=== PATIENT | male | born 1980 | race Caucasian/White ===

== ENCOUNTER → 2017-01-19 | Outpatient (CLI) | payer OTHER | LOC: BMCIMAGING 10:49 | PROVIDERS: ATTEND Family Medicine | DX: S69.92XA Unspecified injury of left wrist, hand and finger(s), initial encounter (principal); V18.0XXA Pedal cycle driver injured in noncollision transport accident in nontraffic accident, initial encounter; Y93.55 Activity, bike riding ==

== ENCOUNTER 2018-04-03 12:32 | Observation (INO) | payer OTHER ==
[2018-04-03] MEDS ORDERED: METOCLOPRAMIDE 10 MG TAB PO ONE (12:54)
--- NOTE | 2018-04-03 13:00 | EDPHY ---
H & P Stated Complaint: hx migraines/[place]/r sided facial tingling /numbness started at 10 am Time Seen by Provider: 04/03/18 12:44 HPI/ROS: CHIEF COMPLAINT: Headache, right facial numbness HISTORY OF PRESENT ILLNESS: 37 year old male presents with headache and right facial numbness. History of frequent migraine headaches. Onset right-sided frontal headache at 10:00 a.m.. Associated with numbness of the rt cheek, tongue and the left hand. Usually takes ibuprofen and Reglan for headaches. Ran out of Reglan recently. He has had prior neurologic symptoms associated with migraine headaches. No prior MRI or neurologic evaluation. REVIEW OF SYSTEMS: complete 10 point ROS reviewed and is negative except for the noted elements in the HPI - Personal History Current Tetanus Diphtheria and Acellular Pertussis (TDAP): Unsure - Medical/Surgical History Hx Asthma: No Hx Chronic Respiratory Disease: No Hx Diabetes: No Hx Cardiac Disease: No Hx Renal Disease: No Hx Cirrhosis: No Hx Alcoholism: No Hx HIV/AIDS: No Hx Splenectomy or Spleen Trauma: No Other PMH: migraines - Social History Smoking Status: Never smoked Alcohol Use: Sober Drug Use: None Additional Social History: no PCP - Physical Exam Exam: General Appearance: Alert, pleasant Eyes: Pupils equal and round, no conjunctival pallor ENT, Mouth: Mucous membranes moist Neck: Normal inspection Respiratory: Lungs are clear to auscultation Cardiovascular: Regular rate and rhythm Gastrointestinal: Abdomen is soft and nontender Neurological: Alert, oriented x3, cranial nerves II through XII intact, motor 5 /5, subjective decreased sensation to light touch rt cheek and left hand, normal gait Skin: Warm and dry Extremities: Normal inspection Psychiatric: Mood and affect normal Constitutional: Initial Vital Signs Temperature (C) 36.5 C 04/03/18 12:38 Heart Rate 58 L 04/03/18 12:38 Respiratory Rate 18 04/03/18 12:38 Blood Pressure 128/69 H 04/03/18 12:38 O2 Sat (%) 96 04/03/18 12:38 O2 Delivery Mode Room Air Allergies/Adverse Reactions: No Known Allergies Allergy (Verified 04/03/18 14:29) Home Medications: Medication Instructions Recorded Acetaminophen/ASA/Caffeine 1 each PO DAILY PRN 04/03/18 [Excedrin Tablet (*)] Albuterol [Proventil Inhaler HFA 1 - 2 puffs IH Q4H PRN 04/03/18 (*)] Ibuprofen [Motrin (*)] 200 mg PO DAILY PRN 04/03/18 Metoclopramide [Reglan 5 mg (*)] 5 mg PO Q8HRS PRN 04/03/18 Medical Decision Making - Diagnostics Imaging Results: Imaging Impressions Brain MRI 04/03/18 12:55 Impression: 1. Suspect acute/subacute lacunar infarction involving the right thalamus. 2. No white matter disease, mass, or hemorrhage. Findings discussed with Emergency Department physician, Gabriella Olvera on 2017, 14:10. Head CTA 04/03/18 14:10 Impression: 1. No acute vascular findings. 2. Additional findings, as above. Stenoses are calculated using [place] Symptomatic Carotid Endarterectomy Trial (NASCET) criteria. Findings communicated via secure Voalte text to Betty Dill M.D., on April 03, 2018 at 1534 hours. E:amm Neck CTA 04/03/18 14:10 Impression: 1. No acute vascular findings. 2. Additional findings, as above. Stenoses are calculated using [place] Symptomatic Carotid Endarterectomy Trial (NASCET) criteria. Findings communicated via secure Voalte text to Betty Dill M.D., on April 03, 2018 at 1534 hours. E:amm Imaging: Discussed imaging studies w/ biopsychologist Radiologist, I viewed and interpreted images myself ED Course/Re-evaluation: This patient presents with typical migraine headache, with new neurologic symptoms. MRI of the brain ordered. MRI results discussed with Dr. Ricki Smith. The patient has no prior MRI for comparison. MRI reveals decreased diffusion medial aspect of right thalamus , 4 x 10 mm, concerning for CVA. Results discussed with the patient. He is currently feeling better. Continues to have a mild headache, but neurologic symptoms have resolved. No right facial or left hand numbness. Aspirin 325 mg orally given. Likely migraine LUNSFORD with cerebral infarct. Primary CVA/TIA less likely. No indication for TPA. Neurology consulted. Discussed with Dr. Hewitt, requests CTA of head and neck and admission for further evaluation. Will see the patient in the hospital. The hospitalist service was consulted for admission. Differential Diagnosis: Altered mental status including but not limited to hypoglycemia, infectious process, electrolyte abnormality, head injury, CVA, and intoxicants. - Data Points Laboratory Results: Laboratory Results 04/03/18 13:05 04/03/18 13:05 04/03/18 04/03/18 13:05 13:05 WBC 7.46 10^3/uL 10^3/uL (3.80-9.50) RBC 5.39 10^6/uL 10^6/uL (4.40-6.38) Hgb 16.2 g/dL g/dL (13.7-17.5) Hct 46.4 % % (40.0-51.0) MCV 86.1 fL fL (81.5-99.8) MCH 30.1 pg pg (27.9-34.1) MCHC 34.9 g/dL g/dL (32.4-36.7) RDW 12.0 % % (11.5-15.2) Plt Count 272 10^3/uL 10^3/uL (150-400) MPV 9.5 fL fL (8.7-11.7) Neut % (Auto) 56.7 % % (39.3-74.2) Lymph % (Auto) 33.6 % % (15.0-45.0) [place] % (Auto) 6.0 % % (4.5-13.0) Eos % (Auto) 3.1 % % (0.6-7.6) Baso % (Auto) 0.3 % % (0.3-1.7) Nucleat RBC Rel Count 0.0 % % (0.0-0.2) Absolute Neuts (auto) 4.23 10^3/uL 10^3/uL (1.70-6.50) Absolute Lymphs (auto) 2.51 10^3/uL 10^3/uL (1.00-3.00) Absolute Monos (auto) 0.45 10^3/uL 10^3/uL (0.30-0.80) Absolute Eos (auto) 0.23 10^3/uL 10^3/uL (0.03-0.40) Absolute Basos (auto) 0.02 10^3/uL 10^3/uL (0.02-0.10) Absolute Nucleated RBC 0.00 10^3/uL 10^3/uL (0-0.01) Immature Gran % 0.3 % % (0.0-1.1) Immature Gran # 0.02 10^3/uL 10^3/uL (0.00-0.10) Sodium 139 mEq/L mEq/L (135-145) Potassium 4.1 mEq/L mEq/L (3.3-5.0) Chloride 103 mEq/L mEq/L (97-110) Carbon Dioxide 26 mEq/l mEq/l (22-31) Anion Gap 10 mEq/L mEq/L (6-14) BUN 11 mg/dL mg/dL (7-23) Creatinine 0.7 mg/dL mg/dL (0.7-1.3) Estimated GFR > 60 Glucose 103 mg/dL H mg/dL (70-100) Calcium 9.3 mg/dL mg/dL (8.5-10.4) Medications Given: Discontinued Medications Aspirin (Aspirin) 325 mg PO EDNOW ONE Stop: 04/03/18 14:06 Last Admin: 04/03/18 14:11 Dose: 325 mg Metoclopramide HCl (Reglan) 5 mg PO EDNOW ONE Stop: 04/03/18 12:55 Last Admin: 04/03/18 13:09 Dose: 5 mg Departure - Departure Disposition: [facility] Acute Clinical Impression: Paresthesias Migraine headache Qualifiers: Migraine type: other Status migrainosus presence: without status migrainosus Intractability: not intractable Qualified Code(s): G43.809 - Other migraine, not intractable, without status migrainosus Condition: Fair
[2018-04-03] MEDS ORDERED: ASPIRIN 325 MG TAB PO ONE (14:05)
[2018-04-03 14:12] LABS: PLATELET COUNT 272 10^3/uL (150-400)
[2018-04-03] MEDS ORDERED: IOPAMIDOL (ISOVUE 370) 100 ML BTL IV ONE (14:38)
--- NOTE | 2018-04-03 15:14 | CPEKG ---
Test Reason : OPEN Blood Pressure : / mmHG Vent. Rate : 048 BPM Atrial Rate : 049 BPM P-R Int : 163 ms QRS Dur : 096 ms QT Int : 458 ms P-R-T Axes : 067 068 054 degrees QTc Int : 410 ms Sinus bradycardia Probable left atrial enlargement ST elev, probable normal early repol pattern Confirmed by Gabriella Olvera ([id number]) on 04/03/2018 3:14:32 PM Referred By: Confirmed By:Gabriella Olvera
[2018-04-03] MEDS ORDERED: LORazepam 0.5 MG TAB PO PRN (15:22)
[2018-04-03] MEDS ORDERED: oxyCODONE IR 5 MG TAB PO PRN (15:22)
[2018-04-03] MEDS ORDERED: ONDANSETRON 4 MG/2 ML VIAL IVP PRN (15:22)
[2018-04-03] MEDS ORDERED: HYDROCODONE/APAP 5/325 TAB PO PRN (15:22)
[2018-04-03] MEDS ORDERED: ACETAMINOPHEN 325 MG TAB PO PRN (15:22)
[2018-04-03] MEDS ORDERED: PROMETHAZINE HCL 25 MG/ML INJ IVP PRN (15:22)
[2018-04-03] MEDS ORDERED: ONDANSETRON DISINTEGRATING 4 MG TAB PO PRN (15:22)
--- NOTE | 2018-04-03 16:21 | ASMTCMCOM ---
CM Note CM Note Notes: Pt has been admitted with headache and R facial numbness. He has a hx of migraines. Neurology is consulting. CM will follow for any d/c needs. Date Signed: 04/03/2018 04:20 PM Electronically Signed By:DAVID Bolton
--- NOTE | 2018-04-03 17:02 | ECHO ---
[email or web address] [address] Main: [phone] Fax: [email or web address] Echocardiogram Name: SUKH AMEZQUITA MR#: [id number] Study Date: 04/03/2018 Study Time: 03:49 PM Date of : 1980 Age: 37 year(s) Height: ( ) Weight: ( ) BSA: Gender: Male Examination: Echo with Agitated Saline Indication: ischemic stroke Image Quality: Adequate Contrast: I.V. dose of agitated saline Requested by: Betty Dill BP: / Heart Rate: Rhythm: Indication: ischemic stroke Procedure Staff Hepatology Physician: Althea De Leon [facility] Reading Physician: Obinna Coley MD Requesting Provider: Conclusions: Normal size left ventricle. Normal global systolic LV function. EF is 53 %. The mitral valve is normal in appearance and function. Trivial to mild mitral regurgitation. The aortic valve is tri-leaflet and functions normally. There appears to be a single bubble that crosses the atrail septum on bubble study. Can not exclude abberrant cord. Consider MAYELIN if clinically indicated to further evaluate the patients condition. No old studies for comparison. Measurements: Chambers Valvular Assessment AV/MV Valvular Assessment TV/PV Normal Normal Normal Name Value Range Name Value Range Name Value Range Ao Jeanette (MM): 3.1 cm (2.2 cm-3.7 AV Vmax: 1.14 m/s (1 m/s-1.7 PV Vmax: 0.98 m/s (0.6 m/s-0.9 cm) m/s) m/s) IVSd (2D): 0.7 cm (0.6 cm-1.1 AV maxP mmHg ( - ) PV PGmax: 4 mmHg ( - ) cm) LVOT Vmax: 0.78 m/s (0.7 m/s-1.1 LVDd (2D): 5.4 cm (4.2 cm-5.9 m/s) cm) CRISTIAN (Vmax): 2.8 cm2 ( - ) LVDs (2D): 3.1 cm (2.1 cm-4 MV E Vmax: 0.46 m/s ( - ) cm) MV A Vmax: 0.43 m/s ( - ) LVPWd (2D): 0.9 cm (0.6 cm-1 MV E/A: 1.07 ( - ) cm) LVOTd 2.3 cm 2.3 cm mm LVEF (MOD4): 53 % (>=55 %) RVDd(2D): 3.3 cm (1.9 cm-3.8 cmmm) Continued Measurements: Patient: SUKH AMEZQUITA Study Date: 04/03/2018 Page 1 of 2 03:49 PM Chambers Valvular Assessment AV/MV Name Value Name Value LADs: 3.1 cm MV DecTime: 176 m/s LADs Lon.5 cm MV E' Septal: 0.09 m/s LA Area: 14.6 cm2 MV E/E' Septal: 4.90 RA Area: 14.0 cm2 MV E/E' Lateral: 3.10 Additional Vessels Name Value Ao Ascendin.0 cm Findings: Left Ventricle: Normal size left ventricle. No LV hypertrophy. Normal global systolic LV function. EF is 53 %. No regional wall motion abnormality. Normal diastolic LV function. Right Ventricle: Normal size right ventricle. Normal RV function. Left Atrium: The left atrium is normal in size. LA index 30.6ml/m2. Right Atrium: The right atrium is normal in size. Mitral Valve: The mitral valve is normal in appearance and function. Trivial to mild mitral regurgitation. No mitral stenosis is present. Aortic Valve: The aortic valve is tri-leaflet and functions normally. There is no aortic valve regurgitation. No aortic valve stenosis is present. Tricuspid Valve: The tricuspid valve is normal in appearance and function. Trivial tricuspid valve regurgitation. Pulmonary artery pressure is not obtained due to inadequate TR jet. Pulmonic Valve: The pulmonic valve is normal in appearance and function. Trivial to mild pulmonic valve regurgitation. Aorta: The aorta is normal. Normal size aortic root measuring 3.1 cm. Normal size ascending aorta measuring 3.0 cm. IVC: Normal size and course of the IVC. Pericardium: No pericardial effusion. (No Signature Object) Patient: SUKH AMEZQUITA Study Date: 04/03/2018 Page 2 of 2 03:49 PM [id number]
--- NOTE | 2018-04-03 17:55 | GCON ---
NEUROLOGY CONSULT REFERRING PHYSICIAN: Gabriella Olvera MD CHIEF COMPLAINT: Abnormal MRI brain. HISTORY OF PRESENT ILLNESS: The patient is a very pleasant 37-year-old gentleman with a 7+ year of migraine with aura. He typically gets facial paresthesias and numbness or paresthesias in his upper extremities. He has been having perhaps increased stress at work and with this some fatigue and hypersomnolence. He woke up feeling fatigued today. He also felt some "brain fog" in terms of troubles thinking, doing simple tasks and procedures. He went to work and started developing his typical migrainous aura of scotoma, which then transformed into a right-sided retro-orbital throbbing headache. This is typical for him. However, co-worker thought there could have been facial droop or that he was not thinking clearly and thought he should be seen in the ED. He came to the ED and had a brain MRI which showed a faint area of increased diffusion-weighted abnormality in the right thalamus. The patient did have a few seconds of left hand paresthesias, but he gets these commonly with migraines. There was no specific left-sided hemianesthesia syndrome with this presentation today. Because of the abnormality, he had a CTA of the head and neck, which was negative. Echocardiogram was done and showed no intracardiac thrombus. He is now improving. REVIEW OF SYSTEMS: A 10-point review of systems was done and only pertinent to the HPI. For past medical history, social history, family history, home medications, allergies, see the admitting hospitalist's History and Physical. PHYSICAL EXAM: VITAL SIGNS: Blood pressure is 116/65, heart rate 50s to 60s, temperature 36.5, O2 sats 97%. NEUROLOGIC: In no acute distress. Very pleasant. Higher mental function: Awake and alert. No aphasia. Cranial nerve exam normal 2-7 and 12. Motor: Normal strength, tone, and reflexes throughout. Sensory: Normal to light touch throughout. No extinction. Coordination is normal in the upper extremities. IMPRESSION: 1. Migraine with aura. 2. Abnormal MRI. PLAN: We had a long discussion regarding the differential diagnosis today. Specifically, we may be seeing imaging abnormalities in the setting of an acute migraine. We also discussed the possibility of a migrainous cerebral infarction. Finally, we discussed the possibly of an unrelated ischemic infarct during a migraine, which seems unlikely. We will complete the stroke workup with a 30-day outpatient event monitor. Angiography and echocardiogram were unremarkable. He should be discharged on an aspirin/statin daily. I would also recommend we repeat an MRI brain tomorrow around 11 am to see if the signal has changed. This would help understand and differentiate ischemic stroke versus migrainous signal changes. I will then see him as an outpatient in 4-6 weeks to continue ongoing care for all the above including migraine treatment. He should be on an aspirin indefinitely as noted above. Finally, we will also check a thrombophilia panel and follow up as an outpatient. We will continue to follow this very pleasant patient. Thank you for the consultation. Forty-five total minutes floor time reviewing records, imaging, coordination of care, and direct counseling with the patient. /[id number]/MODL MTDRobby
--- NOTE | 2018-04-03 21:45 | PDGENHP ---
History and Physical - Chief Complaint headache, right facial numbness/ left hand tingling - History of Present Illness 37 yo M with PMH of migraine headache presenting with c/o headache along with right facial numbness and reported right facial droop as well as left hand tingling. Patient notes that he has had migraines for many years, but they do seem to be intensifying recently, where he would previously have them only every few months, he is having them lately every month. He often will get left hand tingling with his migraines, but today he also had right facial numbness and one of his co workers looked at him and said he looked as if he was having a stroke as one side of his face was drooping. For that reason he came to the ER. At the time of my evaluation all of the symptoms other than his headache had resolved. He also notes that for what seems like years he has been having issues with significant fatigue. He notes he sleeps 12 hours every night and is still tired in the daytime, he will often take several hour naps after sleeping 12 hours. Today he has had 3 naps and is still tired. He has not had other issues including palpitations, chest pain, fever or chills. History Information - Allergies/Home Medication List Allergies/Adverse Reactions: No Known Allergies Allergy (Verified 04/03/18 14:29) Home Medications: Acetaminophen/ASA/Caffeine [Excedrin Tablet (*)] 1 each PO DAILY PRN 04/03/18 [ Last Taken 04/03/18] Albuterol [Proventil Inhaler HFA (*)] 1 - 2 puffs IH Q4H PRN 04/03/18 [Last Taken Unknown] Ibuprofen [Motrin (*)] 200 mg PO DAILY PRN 04/03/18 [Last Taken 04/03/18] Metoclopramide [Reglan 5 mg (*)] 5 mg PO Q8HRS PRN 04/03/18 [Last Taken 04/03/18 ] I have personally reviewed and updated: family history, medical history, social history, surgical history - Past Medical History asthma (exercise induced), migraines - Surgical History Reports: no pertinent surgical hx - Family History Additional family history: Father with Gadiel's vasculitis and prostate cancer. Mother and sister in good health - Social History Smoking Status: Never smoked Alcohol Use: Sober Drug Use: None Review of Systems Review of Systems: ROS: 10pt was reviewed & negative except for what was stated in HPI & below Physical Exam Physical Exam: Temp Pulse Resp BP Pulse Ox 37.1 C 55 L 14 119/70 95 04/03/18 20:12 04/03/18 20:12 04/03/18 20:12 04/03/18 20:12 04/03/18 20:12 Constitutional: no apparent distress, appears nourished Eyes: PERRL, anicteric sclera Ears, Nose, Mouth, Throat: moist mucous membranes, hearing normal, ears appear normal Cardiovascular: regular rate and rhythym, no murmur, rub, or gallop, No edema Respiratory: no respiratory distress, no rales or rhonchi, clear to auscultation Gastrointestinal: normoactive bowel sounds, soft, non-tender abdomen Genitourinary: no bladder tenderness Skin: warm, normal color Musculoskeletal: full muscle strength, no muscle tenderness, normal joint ROM Neurologic: AAOx3, sensation intact bilaterally, CN II-XII Intact, No weakness, No numbness Psychiatric: interacting appropriately, not anxious, not encephalopathic Lab Data & Imaging Review 04/03/18 13:05 04/03/18 13:05 WBC 7.46 10^3/uL (3.80-9.50) 04/03/18 13:05 RBC 5.39 10^6/uL (4.40-6.38) 04/03/18 13:05 Hgb 16.2 g/dL (13.7-17.5) 04/03/18 13:05 Hct 46.4 % (40.0-51.0) 04/03/18 13:05 MCV 86.1 fL (81.5-99.8) 04/03/18 13:05 MCH 30.1 pg (27.9-34.1) 04/03/18 13:05 MCHC 34.9 g/dL (32.4-36.7) 04/03/18 13:05 RDW 12.0 % (11.5-15.2) 04/03/18 13:05 Plt Count 272 10^3/uL (150-400) 04/03/18 13:05 MPV 9.5 fL (8.7-11.7) 04/03/18 13:05 Neut % (Auto) 56.7 % (39.3-74.2) 04/03/18 13:05 Lymph % (Auto) 33.6 % (15.0-45.0) 04/03/18 13:05 [place] % (Auto) 6.0 % (4.5-13.0) 04/03/18 13:05 Eos % (Auto) 3.1 % (0.6-7.6) 04/03/18 13:05 Baso % (Auto) 0.3 % (0.3-1.7) 04/03/18 13:05 Nucleat RBC Rel Count 0.0 % (0.0-0.2) 04/03/18 13:05 Absolute Neuts (auto) 4.23 10^3/uL (1.70-6.50) 04/03/18 13:05 Absolute Lymphs (auto) 2.51 10^3/uL (1.00-3.00) 04/03/18 13:05 Absolute Monos (auto) 0.45 10^3/uL (0.30-0.80) 04/03/18 13:05 Absolute Eos (auto) 0.23 10^3/uL (0.03-0.40) 04/03/18 13:05 Absolute Basos (auto) 0.02 10^3/uL (0.02-0.10) 04/03/18 13:05 Absolute Nucleated RBC 0.00 10^3/uL (0-0.01) 04/03/18 13:05 Immature Gran % 0.3 % (0.0-1.1) 04/03/18 13:05 Immature Gran # 0.02 10^3/uL (0.00-0.10) 04/03/18 13:05 Sodium 139 mEq/L (135-145) 04/03/18 13:05 Potassium 4.1 mEq/L (3.3-5.0) 04/03/18 13:05 Chloride 103 mEq/L (97-110) 04/03/18 13:05 Carbon Dioxide 26 mEq/l (22-31) 04/03/18 13:05 Anion Gap 10 mEq/L (6-14) 04/03/18 13:05 BUN 11 mg/dL (7-23) 04/03/18 13:05 Creatinine 0.7 mg/dL (0.7-1.3) 04/03/18 13:05 Estimated GFR > 60 04/03/18 13:05 Glucose 103 mg/dL (70-100) H 04/03/18 13:05 Calcium 9.3 mg/dL (8.5-10.4) 04/03/18 13:05 Visualized and Interpreted imaging results: Yes Interpretation: Brain MRI: acute/subacute lacunar infarct right thalamus. head/ neck CTA: negative Visualized and Interpreted EKG results: Yes EKG Interpretation: Positive for: normal sinsus rhythm (kati) Assessment & Plan Assessment: Migraine headache (Acute) Paresthesias (Acute) 37 yo M with hx of migraine presenting with LUNSFORD/right facial and left hand numbness and MRI concerning for CVA # paresthesias: in setting of migraine LUNSFORD and brain MRI concerning for acute/ subacute right thalamic infarct. Sxs have resolved completely, as next # ? CVA: Discussed with neurology, head and neck CTA negative, echo wnl, thrombophilia w/u pending. Given MRI being performed in setting of acute migraine, possible that affected the results (reports of abnormal MRI occurring during bout of migraine) Plan is for repeat MRI in am. continue asa indefinitely. Patient will f/u with neuro after discharge and likely can dc following MRI tomorrow # migraine: recurrent with aura and as above, neurology following and as above will f/u with them after dc for ongoing management # fatigue: unclear how or if related to above, will check tsh, no real other localizing sxs at this time # observation status Patient new to my care. Old records reviewed and summarized as above. Care plan reviewed with ER doctor and neurology as above.
[2018-04-04 06:01] LABS: PLATELET COUNT 241 10^3/uL (150-400)
[2018-04-04] MEDS ORDERED: ASPIRIN 81 MG CHEWABLE TAB PO SCH (09:00)
[2018-04-04] MEDS ORDERED: ENOXAPARIN 40 MG/0.4 ML SYR SC SCH (09:00)
--- NOTE | 2018-04-04 09:32 | NEUROPROG ---
Assessment: 1. Migraine with aura 2. Abnormal brain MRI 35 total minutes floor time; review of interim history, labs, counseling the patient and coordination of care The migraine as resolved. Echocardiogram may show a single bubble crossing the septum. No atrial fibrillation that I have been made aware of overnight on telemetry. Recommendation: 1. Repeat brain MRI around 11:00 a.m. To see if this signal is change. I will call the patient from my clinic to discuss findings. 2. Plan on discharge home later today on aspirin 81 mg daily plus statin. 3. Outpatient Cardiology consultation for 30 day event monitor and consideration for MAYELIN based on review of the surface echo. 4. Thrombophilia panel is pending, I will follow-up as an outpatient 5. Follow-up with me in 4 weeks to review all of the above and ongoing migraine management. Subjective: Migraine resolved Objective: Vital Signs Temp Pulse Resp BP Pulse Ox 36.5 C 51 L 10 L 120/74 97 04/04/18 08:00 04/04/18 08:00 04/04/18 08:00 04/04/18 08:00 04/04/18 08:00 Laboratory Results 04/04/18 05:25 04/04/18 05:25 04/03/18 04/04/18 04/05/18 05:59 05:59 05:59 Intake Total 1000 Balance 1000 Awake and alert Allergies/Adverse Reactions: No Known Allergies Allergy (Verified 04/03/18 14:29)
[2018-04-04 14:39] VITALS: BP 120/71
--- NOTE | 2018-04-04 15:08 | NEUROPROG ---
Assessment: Addendum note: 1. Migrainous infarction I viewed the the repeat brain MRI images and the diffusion-weighted abnormalities are more intense now compared to yesterday study. This would confirm the diagnosis of migrainous infarction. I reviewed the literature with the patient including that this is a rare complication of migraine with aura, more commonly in women than men, and more commonly in the posterior circulation verses the anterior circulation. I spoke with the patient on the phone today. My recommendations are the same as below: Recommendation: 1. Plan on discharge home later today on aspirin 81 mg daily plus statin. 2. Outpatient Cardiology consultation for 30 day event monitor and consideration for MAYELIN based on review of the surface echo. 3. Thrombophilia panel is pending, I will follow-up as an outpatient 4. Follow-up with me in 4 weeks to review all of the above and ongoing migraine management. Objective: Vital Signs Temp Pulse Resp BP Pulse Ox 37.0 C 16 L 17 120/71 95 04/04/18 12:00 04/04/18 12:00 04/04/18 12:00 04/04/18 12:00 04/04/18 12:00 Laboratory Results 04/04/18 05:25 04/04/18 05:25 04/03/18 04/04/18 04/05/18 05:59 05:59 05:59 Intake Total 1000 Balance 1000 Allergies/Adverse Reactions: No Known Allergies Allergy (Verified 04/03/18 14:29)
--- NOTE | 2018-04-04 15:21 | PDDCSUM ---
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 Migraine headaches 3. Chronic fatigue Brief Hospital Course: 37yo M with history of migraine headaches presented with headache, right facial and left hand paresthesias, and some word finding difficulty found to have acute /subacute infarct in right thalamic area on brain MRI. A repeat MRI on day of discharged showed more intense diffusion-weighted images, which, per neurology, confirmed a diagnosis of migrainous infarction (a rare complication of migraine with aura). Typical stroke work up was performed and grossly unremarkable except for a potential small PFO ("one bubble" was seen in left atrium on TTE). He was discharged on an aspirin and statin (LDL 93). He is being set up with a 30 day cardiac event monitor and will follow up with cardiology to determine if MAYELIN is needed. Thrombophilia panel is pending at discharge. Overall his neurologic deficits had resolved at time of discharge. 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 Medications: Please refer to EMR for complete list. Changes this admission include addition of aspirin 81mg daily and atorvastatin 20mg daily. Follow Up Plan: 1. A 30 day cardiac event monitor is being mailed to the patient in roughly 5 days. 2. He has an appointment to follow up with Dr Carlos Campos of cardiology on at 9am to review ekg monitor results and discuss potential need for MAYELIN given possibility of PFO 3. Follow up in neurology clinic in 4 weeks. 4. Thrombophilia panel pending at discharge 5. Needs to establish with PCP. Needs chronic fatigue work up, consider sleep study. Physical Exam: Vitals and telemetry reviewed, no concerning findings. Alert and oriented without focal deficits, full strength, no sensory deficits, reflexes normal. RRR without m/r/g, lungs clear, abd soft, no rashes, no edema.
--- NOTE | 2018-04-04 15:31 | ASMTLACE ---
LAURAE Length of stay for Answers: 2 days current admission Acuity / Level of Answers: No Care: Did the patient have an inpatient admission? Comorbidities - select Answers: Other Notes: Hx of migranes all that apply # of Emergency department Answers: 1-2 visits in the last 6 months Score: 4 Date Signed: 04/04/2018 03:31 PM Electronically Signed By:DAVID Yang
--- NOTE | 2018-04-04 15:32 | ASMTCMCOM ---
CM Note CM Note Notes: Pt medically stable for d/c, no CM d/c needs identified. 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 Pt to follow up with neurology outpatient. Date Signed: 04/04/2018 03:32 PM Electronically Signed By:DAVID Yang
== END 2018-04-04 16:41 | disposition home or self-care (01) ==
LOC: F3N 15:32
PROVIDERS: ADMIT Internal Medicine; ATTEND Internal Medicine
DX: G00-G99 Diseases of the nervous system (principal); I63.81 Other cerebral infarction due to occlusion or stenosis of small artery; R53.83 Other fatigue; Z80.42 Family history of malignant neoplasm of prostate
CPT/HCPCS: 70496; 70498; 70551; 92523; 93005; 93306; 97161; 97165; 99285; G0378; 81479-90; 83891-91; 83896-91; 85300-90; 85670-90; J1650; Q9967

== ENCOUNTER 2018-04-19 10:03 | Day surgery (SDC) | payer OTHER ==
[2018-04-19] MEDS ORDERED: MIDAZOLAM 2 MG/2 ML VIAL IVP ONE (10:13)
[2018-04-19] MEDS ORDERED: NS 500 ML IV ONE (10:13)
[2018-04-19] MEDS ORDERED: BENZOCAINE UNIT DOSE SPRAY HURRICAINE MM ONE (10:13)
[2018-04-19] MEDS ORDERED: fentaNYL 100 MCG/2 ML INJ IVP ONE (10:13)
--- NOTE | 2018-04-19 10:50 | PDHPUP ---
History & Physical Update H&P update statement: This history and physical update is based on an assessment of the patient which was completed after admission or registration (within 24 hours), but prior to the surgery/procedure. H&P update: H&P reviewed & patient examined, no change in patient's condition since H&P completed
[2018-04-19] MEDS ORDERED: PROMETHAZINE HCL 25 MG/ML INJ IVP PRN (11:11)
[2018-04-19] MEDS ORDERED: LR 500 ML IV PRN (11:11)
[2018-04-19] MEDS ORDERED: ONDANSETRON 4 MG/2 ML VIAL IVP PRN (11:11)
[2018-04-19] MEDS ORDERED: fentaNYL 100 MCG/2 ML INJ IVP PRN (11:11)
[2018-04-19] MEDS ORDERED: NS 500 ML IV PRN (11:11)
[2018-04-19] MEDS ORDERED: NALOXONE HCL 0.4 MG/ML INJ IVP PRN (11:11)
--- NOTE | 2018-04-19 11:11 | PDANEPAE ---
ANE Past Medical History - Pulmonary History Hx Oxygen in Use at Home: No Hx Sleep Apnea: No - Endocrine History Hx Diabetes: No Obesity: no - Chronic Pain History Chronic Pain: Yes ANE Review of Systems Review of Systems: ANE Patient History - Allergies Allergies/Adverse Reactions: No Known Allergies Allergy (Verified 04/03/18 14:29) - Home Medications Home medications: home medication list seen and reviewed Home Medications: Acetaminophen/ASA/Caffeine [Excedrin Tablet (*)] 1 each PO DAILY PRN 04/03/18 [ Last Taken 04/03/18] Albuterol [Proventil Inhaler HFA (*)] 1 - 2 puffs IH Q4H PRN 04/03/18 [Last Taken Unknown] Ibuprofen [Motrin (*)] 200 mg PO DAILY PRN 04/03/18 [Last Taken 04/03/18] - NPO status NPO Status: no food or drink >8 hours - Anes Hx Anes Hx: no prior problems - Smoking Hx Smoking Status: Never smoked ANE Labs/Vital Signs - Vital Signs Height: 187.96 cm Weight: 90.718 kg ANE Physical Exam - Airway Neck exam: FROM Mallampati Score: Class 2 Mouth exam: normal dental/mouth exam - Pulmonary Pulmonary: no respiratory distress, no rales or rhonchi, clear to auscultation - Cardiovascular Cardiovascular: regular rate and rhythym, no murmur, rub, or gallop - ASA Status ASA Status: II ANE Anesthesia Plan Anesthesia Plan: MAC
[2018-04-19] MEDS ORDERED: PROPOFOL 200 MG/20 ML VIAL ONE (11:12)
--- NOTE | 2018-04-19 11:43 | POSTANESTH ---
Post Anesthetic Evaluation Cardiovascular Status: Normal, Stable, Similar to Pre-Op Cond Respiratory Status: Normal, Stable, Similar to Pre-op Cond. Level of Consciousness/Mental Status: Can Participate in Eval, Alert and Oriented Pain Control: Adequate, Prn Tx Ordered Nausea/Vomiting Control: Adequate, Prn Tx Ordered Complications Possibly Related to Anesthesia: None Noted
--- NOTE | 2018-04-19 13:40 | ECHO ---
[email or web address] [address] [address] Main: [phone] Fax: Transesophageal Echocardiography Name: SUKH AMEZQUITA MR#: [id number] Study Date: 04/19/2018 Study Time: 10:57 AM Date of : 1980 Age: 37 year(s) Height: ( ) Weight: ( ) BSA: Gender: Male Examination: MAYELIN Indication: eval for pfo Image Quality: Adequate Contrast: Requested by: Taiwo Feldman Heart Rate: Rhythm: BP: / Procedure Staff Bread Room Hand: Jewels Olivera RDCS Reading Physician: Taiwo Feldman MD Requesting Provider: MAYELIN Exam Details Conclusions: Normal size left ventricle. Normal global systolic LV function. No regional wall motion abnormality. There is color doppler evidence for a small PFO. An agitated saline contrast study was performed which demonstrated a single bubble transiting the interatrial septum. The left atrial appendage is unilobular. No thrombus in left appendage. Trivial mitral valve regurgitation. Mild tricuspid regurgitation is present. Measurements: Chambers Valvular Assessment AV/MV Valvular Assessment TV/PV Normal Normal Normal Name Value Range Name Value Range Name Value Range Additional Measurements: Findings: Left Ventricle: Normal size left ventricle. Normal global systolic LV function. No regional wall motion abnormality. Right Ventricle: Normal size right ventricle. Normal RV function. Left Atrium: Patient: SUKH AMEZQUITA Study Date: 04/19/2018 Page 1 of 2 10:57 AM The left atrium is normal in size. There is color doppler evidence for a small PFO. An agitated saline contrast study was performed which demonstrated a single bubble transiting the interatrial septum. Left Atrial Appendage: The left atrial appendage is unilobular. No thrombus in left appendage. Right Atrium: The right atrium is normal in size. Mitral Valve: The mitral valve is normal in appearance and function. Trivial mitral valve regurgitation. Aortic Valve: The aortic valve is tri-leaflet. There is no significant aortic valve regurgitation. No aortic valve stenosis is present. Tricuspid Valve: The tricuspid valve is normal in appearance and function. Mild tricuspid regurgitation is present. Pulmonic Valve: The pulmonic valve is normal in appearance and function. Aorta: Normal size. l1n (No Signature Object) Patient: SUKH AMEZQUITA Study Date: 04/19/2018 Page 2 of 2 10:57 AM [id number]
== END 2018-04-19 12:52 | disposition home or self-care (01) ==
LOC: FCATH 10:03
PROVIDERS: ATTEND Internal Medicine Cardiovascular Disease
PROC: B246ZZ4 Ultrasonography of Right and Left Heart, Transesophageal (ICD-10-PCS; principal; 2018-04-19)
DX: Q21.1 Atrial septal defect (principal); I07.1 Rheumatic tricuspid insufficiency; Z86.73 Personal history of transient ischemic attack (TIA), and cerebral infarction without residual deficits; Z79.82 Long term (current) use of aspirin
CPT/HCPCS: J2704

== ENCOUNTER → 2018-05-04 | Outpatient (CLI) | payer OTHER | LOC: FIMAGING 14:38 | PROVIDERS: ATTEND Surgery | DX: J93.9 Pneumothorax, unspecified (principal) ==